=== PATIENT | male | born 1960 | race Two or more races ===

== ENCOUNTER 2023-11-07 05:06 | Inpatient (IN) | payer MEDICARE, OTHER ==
[~2023-11-07] VITALS: Ht 182.9 cm; Wt 128.4 kg
[2023-11-07] VITALS (7 sets, daily range): BP systolic 118–134; BP diastolic 81–92; TEMP 97–98.4; O2SAT 93–97
[2023-11-07] MEDS ORDERED: POLYMYXIN B SULFATE 500,000 UNITS ONE (06:19)
[2023-11-07] MEDS ORDERED: BUPIVACAINE 0.5 % PF 150 MG/30 ML VIAL ONE ×2 (06:20→06:25)
[2023-11-07] MEDS ORDERED: ANESTHESIA TRAY IN PYXIS 1 EA TRAY MC ONE (06:20)
[2023-11-07] MEDS ORDERED: MIDAZOLAM HCL 2 MG/2ML VIAL ONE (06:24)
[2023-11-07] MEDS ORDERED: ACETAMINOPHEN 325 MG TABLET ONE (06:24)
[2023-11-07] MEDS ORDERED: FENTANYL PF 250MCG/5ML AMPUL ONE (06:24)
[2023-11-07] MEDS ORDERED: FAMOTIDINE/PF INJ 20 MG/2 ML VIAL IV ONE (06:25)
[2023-11-07] MEDS ORDERED: ROCURONIUM BROMIDE 50 MG/5 ML ONE (06:25)
[2023-11-07] MEDS ORDERED: TRANEXAMIC ACID 3,000 MG in SODIUM CHLORIDE IRRIG SOLUTION 70 ML IR ONE (07:00)
[2023-11-07] MEDS ORDERED: HYDROMORPHONE INJ 2 MG/ML DISP.SYRIN ONE (08:17)
[2023-11-07] MEDS ORDERED: TRANEXAMIC ACID 1,000 MG/10 ML VIAL ONE (08:17)
[2023-11-07] MEDS: NICOTINE PATCH (7MG) 7 MG PATCH.TD24 TD ONE (09:38)
[2023-11-07] MEDS ORDERED: MAGNESIUM HYDROXIDE 30 ML UDC PO PRN (10:00)
[2023-11-07] MEDS ORDERED: diphenhydrAMINE HCL 25 MG CAPSULE PO PRN (10:00)
[2023-11-07] MEDS ORDERED: MENTHOL/CETYLPYRD (CEPACOL) 1 LOZ LOZENGE PO PRN (10:00)
[2023-11-07] MEDS ORDERED: CLONIDINE HCL 0.1 MG TABLET PO PRN (10:00)
[2023-11-07] MEDS ORDERED: ALBUTEROL FS 2.5 MG/0.5 ML VIAL.NEB NEB PRN (10:00)
[2023-11-07] MEDS ORDERED: MAG HYDROX/AL HYDROX/SIMETH 30 ML UDC PO PRN (10:00)
[2023-11-07] MEDS ORDERED: CYCLOBENZAPRINE 10 MG TABLET PO PRN (10:00)
[2023-11-07] MEDS ORDERED: HYDROMORPHONE 1 MG/1 ML DISP.SYRIN SQ PRN (10:00)
[2023-11-07] MEDS ORDERED: HYDROMORPHONE 1 MG/1 ML DISP.SYRIN IM/IV/SC PRN (10:00)
[2023-11-07] MEDS ORDERED: ONDANSETRON HCL/PF 4 MG/2 ML VIAL IV PRN (10:00)
[2023-11-07] MEDS ORDERED: NAPR-1009 PO (10:14)
[2023-11-07] MEDS ORDERED: LISI20TA30 PO (10:14)
[2023-11-07] MEDS ORDERED: CHOL200059 PO (10:14)
[2023-11-07] MEDS ORDERED: ATEN50TA PO (10:14)
[2023-11-07] MEDS ORDERED: ATOR20TA PO (10:14)
[2023-11-07] MEDS ORDERED: AMLO10TA4 PO (10:14)
[2023-11-07] MEDS ORDERED: CYCL10TA9 PO (10:14)
[2023-11-07] MEDS ORDERED: ASPI-1169 PO (10:14)
[2023-11-07] MEDS ORDERED: METF-442 PO (10:14)
[2023-11-07] MEDS ORDERED: DAPA10TA PO (10:14)
[2023-11-07] MEDS ORDERED: ZOLPIDEM TARTRATE 5 MG TABLET PO PRN (10:30)
[2023-11-07] MEDS ORDERED: BISACODYL SUPP (10 MG) 10 MG/SUPP.RECT SUPP.RECT RC PRN (10:30)
[2023-11-07] MEDS ORDERED: SENNOSIDES 8.6 MG TABLET PO PRN (10:30)
[2023-11-07] MEDS ORDERED: ACETAMINOPHEN 325 MG TABLET PO PRN (10:30)
[2023-11-07] MEDS: NICOTINE PATCH (7MG) 7 MG PATCH.TD24 TD SCH (10:49)
[2023-11-07] MEDS: FAMOTIDINE (20 MG) 20 MG TABLET PO SCH (10:50)
[2023-11-07] MEDS ORDERED: AMLODIPINE BESYLATE 10 MG TABLET PO SCH (11:00)
[2023-11-07] MEDS ORDERED: NICOTINE PATCH (7MG) 7 MG PATCH.TD24 TD SCH (11:00)
[2023-11-07] MEDS: IV D5/0.45 NACL 1,000 ML IV PRN (11:01)
[2023-11-07] MEDS: LISINOPRIL (20MG) 20 MG TABLET PO SCH (11:38)
[2023-11-07] MEDS: ATENOLOL 50 MG TABLET PO SCH (11:38)
[2023-11-07] MEDS: CHOLECALCIFEROL (VITAMIN D 3) 400 UNIT TABLET PO SCH (11:39)
[2023-11-07] MEDS: oxyCODONE IR immediate release 5 MG TABLET PO PRN (13:34)
[2023-11-07] MEDS: ANCEF 1 GM/50 ML D5W IV SCH (14:29)
[2023-11-07] MEDS: DOCUSATE SODIUM 100 MG CAPSULE PO SCH (16:20)
[2023-11-07] MEDS: METFORMIN 500 MG TABLET PO SCH (16:20)
[2023-11-07] MEDS: AMLODIPINE BESYLATE 5 MG TABLET PO SCH (16:20)
[2023-11-07] MEDS: ATORVASTATIN 10 MG TABLET PO SCH (21:09)
[2023-11-07] MEDS: TAMSULOSIN 0.4 MG CAP.SR.24H PO SCH (21:09)
[2023-11-08 03:20] VITALS: O2SAT 96
[2023-11-08 07:12] LABS: HEMOGLOBIN 13.1 g/dL (13.5-17.5)
[2023-11-08 07:30] VITALS: BP 114/76; TEMP 98.4; O2SAT 96
[2023-11-08] MEDS: ASPIRIN 325 MG TABLET PO SCH (08:20)
[2023-11-08 08:21] VITALS: BP 114/76
[2023-11-08] MEDS: DAPAGLIFLOZIN PROPANEDIOL 5 MG TABLET PO SCH (08:22)
== END 2023-11-08 15:30 | disposition home health service (06) | DRG 470 ==
LOC: DS 05:06 → MED 05:07
PROVIDERS: ADMIT Nurse Practitioner Acute Care; ATTEND Nurse Practitioner Acute Care
PROC: 0SRD0J9 Replacement of Left Knee Joint with Synthetic Substitute, Cemented, Open Approach (ICD-10-PCS; principal; 2023-11-07)
DX: M17.12 Unilateral primary osteoarthritis, left knee (principal); D68.69 Other thrombophilia; I10 Essential (primary) hypertension; I25.10 Atherosclerotic heart disease of native coronary artery without angina pectoris; E66.01 Morbid (severe) obesity due to excess calories; E11.9 Type 2 diabetes mellitus without complications; Z68.38 Body mass index [BMI] 38.0-38.9, adult; E78.5 Hyperlipidemia, unspecified; N40.0 Benign prostatic hyperplasia without lower urinary tract symptoms; Z74.09 Other reduced mobility; F17.210 Nicotine dependence, cigarettes, uncomplicated; Z83.3 Family history of diabetes mellitus; Z82.49 Family history of ischemic heart disease and other diseases of the circulatory system; Z79.84 Long term (current) use of oral hypoglycemic drugs
CPT/HCPCS: 36415; 82962-TC; 85027-TC; 87081-TC; 94760-TC; 94799-TC; 97116-TC; 97530-TC; 97760-TC; A4217; A4223; C1713; C1776; G0378; J0690; J1100; J1170; J1885; J2250; J2405; J2704; J3010; J3490; J7030; J7060; L1830